=== PATIENT | female | born 1960 | race Caucasian/White ===

== ENCOUNTER → 2025-06-17 | Outpatient (CLI) | payer MEDICARE, OTHER ==
[2025-06-17 15:12] LABS: ALT 40 U/L (8-44); AST 25 U/L (13-35); Albumin 4.6 g/dL (3.8-4.9); Albumin/Globulin Ratio 1.64 Ratio (1.60-3.17); Alkaline Phosphatase 101 U/L (41-126); Anion Gap 11.20 mmol/L (4.00-12.00); BUN/Creat Ratio 33.40 Ratio (12.00-20.00); Blood Urea Nitrogen 16.7 mg/dL (9.0-27.0); Calcium 9.8 mg/dL (8.7-10.3); Carbon Dioxide 25.8 mmol/L (21.6-31.8); Chloride 102 mmol/L (96-109); Globulin 2.8 g/dL (1.6-3.3); Glucose 162 mg/dL (70-110); Potassium 4.0 mmol/L (3.5-5.5); Sodium 139 mmol/L (135-145); Total Protein 7.4 g/dL (6.2-8.2)
[2025-06-17 15:18] LABS: HCT 42.0 % (37.2-46.3); HGB 13.9 g/dL (12.0-15.0); MCH 29.6 pg (27.0-32.0); MCHC 33.1 g/dL (32.0-37.0); MCV 89.6 FL (80.0-97.0); NRBC Per 100 WBC 0 X 10*3/uL (0.00-0.01); Platelet Count 254 X 10*3/uL (140-440); RBC 4.69 X 10*6/uL (4.10-5.20); RDW 12.2 % (11.5-14.5); WBC 8.88 X 10*3/uL (4.50-10.00)
[2025-06-17 15:19] LABS: INR 0.93 sec (0.93-1.11); Partial Thromboplastin Time 26.2 sec (23.5-31.0); Prothrombin Time 10.5 sec (9.9-11.9)
== END | disposition home or self-care (01) ==
LOC: LABWHC1 10:41
PROVIDERS: ATTEND Orthopaedic Surgery
DX: Z01.812 Encounter for preprocedural laboratory examination (principal); Z22.322 Carrier or suspected carrier of Methicillin resistant Staphylococcus aureus
CPT/HCPCS: 36415; 80053; 85027; 85610; 85730; 87070; 93005

== ENCOUNTER 2025-06-28 07:15 | Day surgery (SDC) | payer MEDICARE, OTHER ==
[~2025-06-28 07:15] MED LIST: HYDROmorphone 0.5 MG/0.5 ML SYRINGE IVP PRN; TRANEXAMIC 1,000 MG/100ML-NACL 1,000 MG in SALINE 1 100ML.BAG IVPB PRN
[2025-06-28] MEDS: IV FLUID CONTINUATION 1,000 ML IV ONE (07:32)
[2025-06-28 08:17] LABS: Glucose,Whole Blood 103 mg/dL (70-110)
[2025-06-28] MEDS: LACTATED RINGERS 1,000 ML IV SCH (08:19)
[2025-06-28] MEDS: MELOXICAM 7.5 MG TAB PO PRN (08:22)
[2025-06-28] MEDS: GABAPENTIN 300 MG CAP PO PRN (08:23)
[2025-06-28] MEDS: DEXAMETHASONE SOD PHOSPHATE 4 MG/ML 1 ML VIAL IV ONE (08:24)
[2025-06-28] MEDS: ACETAMINOPHEN TAB 500 MG TAB PO PRN (08:24)
[2025-06-28] MEDS: ONDANSETRON 4 MG/2 ML VIAL IVP ONE (08:25)
[2025-06-28] MEDS: MIDAZOLAM 2 MG/2 ML VIAL IV ONE (08:39)
[2025-06-28] MEDS ORDERED: HYDROmorphone 0.5 MG/0.5 ML SYRINGE IVP PRN ×2 (09:07)
[2025-06-28] MEDS ORDERED: MAGNESIUM HYDROXIDE 2,400 MG/30 ML CUP PO PRN (09:07)
[2025-06-28] MEDS ORDERED: ONDANSETRON 4 MG/2 ML VIAL IVP PRN (09:07)
[2025-06-28] MEDS ORDERED: NALOXONE 0.4 MG/ML 1 ML VIAL IV PRN (09:07)
[2025-06-28] MEDS ORDERED: NA PHOS,M-B/NA PHOS,DI-BA 133 ML ENEMA RECTAL PRN (09:07)
[2025-06-28] MEDS ORDERED: HYDROcodone/APAP 7.5-325MG 1 EACH TAB PO PRN ×2 (09:11)
[2025-06-28] MEDS: ceFAZolin 1,000 MG in SODIUM CHLORIDE 0.9% 1,000 ML IRRIGATION ONE (09:42)
[2025-06-28] MEDS: LACTATED RINGERS 1,000 ML IV ONE (10:33)
--- NOTE | 2025-06-28 10:36 | P.OP ---
Date of Procedure: 06/28/25 Preoperative Diagnosis: Severe osteoarthritis of the right knee with a valgus deformity Postoperative Diagnosis: Severe osteoarthritis of the right knee with a valgus deformity Procedure(s) Performed: Right total knee arthroplasty Implants: Bar [employer] Nephew Journey II CR Oxinium Bi-cruciate stabilizing femoral component size 6, right [employer]hew Journey nonporous tibial baseplate size 4, right [employer] Nephew Journey II, constrained articular insert, size 9 mm, Size 3-4, right Bar [employer] Nephew Journey Nga II resurfacing patellar component, oval, 32 mm All components were cemented using Palacos R bone cement The articulation is Oxinium on polyethylene Anesthesia: spinal Surgeon: Bryan Glover Esthetician Spa #1: Bebe Rubi Estimated Blood Loss (ml): 40 Pathology: none sent Condition: stable Disposition: PACU Indications for Procedure: The patient's knee is end-stage, and conservative management has failed. The operation of knee replacement has been discussed at length in the office, as well as potential risks and complications. These are inclusive of, but not limited to: Infection, bleeding, scarring, discomfort, stiffness, blood vessel and nerve damage, need for further surgery, failure to relieve symptoms, persistence, recurrence, or worsening of problems, loosening, dislocation, wear, blood clot, pulmonary embolism, , gait dysfunction, stiffness, and other risks as discussed in the office. Patient elects to proceed and the consent form has been signed. Operative Findings: The operative findings are consistent with severe osteoarthritis of the right knee with a valgus deformity Description of Procedure: The patient was seen in the preoperative area, the consent was reviewed and the operative site was marked with a skin marker. The patient verified the procedure and the operative site. An adductor canal pain catheter and an iPACK block were placed by anesthesia in the preoperative area. The patient was then brought to the operating room and positioned on the operating room table in the supine position. Preoperative antibiotics and a gram of tranexamic acid were given intravenously. A spinal anesthetic was administered by the anesthesia department. Care was taken to make sure that all pressure points were adequately padded. A tourniquet was placed on the upper thigh and the lower extremity was prepped with ChloraPrep and draped in usual sterile fashion. A universal time-out was then performed which confirmed the patient's name, surgical site, ALLERGIES, and consent. The lower extremity was then exsanguinated and tourniquet was inflated to 250 mmHg. A standard anterior midline approach to the knee was performed. The skin and subcutaneous tissue were sharply dissected down to the patellar tendon. A medial parapatellar arthrotomy was then performed. The knee was then extended, the patellar was everted, and the knee was flexed. The infra-patellar fat pad was removed in order to enhance exposure. The anterior horns of both menisci were excised, and a release was performed to the posterior medial aspect of the knee. On gross visual inspection, there was complete loss of articular cartilage in the medial and patellofemoral joint spaces. There was also significant cartilage damage in the lateral compartment. There were multiple periarticular osteophytes globally about the knee which were then removed with a Ronguer. The femoral canal was then opened with the 9.5 mm intramedullary drill. The 8 mm intramedullary ligia was then inserted into the femoral canal with the distal femoral cutting guide set for 5 of valgus. The distal femoral cutting block was then pinned in place. The intramedullary ligia was then removed, and the distal femur was then cut. The cutting block was then removed and the cut was checked for symmetry. The resected bone was then measured to confirm the appropriate distal femoral resection. Next, the sizing guide was then placed and set for 3 external rotation based off of the epicondylar axis and Omaha's line. Pins were then placed and the drill holes, and the femur was sized with the sizing stylus. The pins were then removed, and the sizing guide was then removed. The spikes of the appropriate size femoral block was then placed into the predrilled holes, and malleted into place. Two 45 mm pins were then placed into the fixation holes on the cutting block. An pérez wing was then used to ensure there would be no notching with the anterior cut. The anterior condyles were cut without notching. The anterior chord cut was then performed, followed by the posterior cut, posterior chamfer cut, and the anterior chamfer cut. The collateral ligaments were protected during the entire process. The cutting block was then removed. Any remaining bone and osteophytes were removed from the femur with a Ronguer. Attention was then directed to the tibia. The remaining ACL was removed with a Ronguer, and the tibia was then gently subluxed forward with a large bent knee retractor. Any remaining menisci were excised. The posterior lateral corner was cauterized in order to coagulate the lateral geniculate artery. The extra medullary tibial cutting guide was then placed, set for the appropriate rotation, slope, and depth of resection. The proximal tibia cutting guide was then pinned in place. Proximal tibia was then cut and sized. A curved osteotome was then used to remove any posterior osteophytes from the distal femur. The femoral trial was placed. The notch reaming guide was placed and the notch reamer was then used to remove the intracondylar femoral bone. The box notch trial was then placed. The tibial trial was placed with the appropriate-sized insert. The knee was able to fully extend and flex to 130 and was stable throughout all range of motion. The knee was then extended and the patella was everted. Patella was then measured, and then using an osteotomy guide, the patella was cut at the appropriate level. The patellar component was sized. The patellar drill guide was placed and the patella was drilled. The patella trial was then placed. The knee was then taken through range of motion with the patella trial and the patella tracked normally using the no thumbs technique. The patella trial was then removed. The knee was then flexed and lug holes were drilled through the femoral trial and the femoral trial was then removed. The tibial was then re-exposed, and the tibial broach guide was then pinned in place after it was set for the appropriate rotation to allow for the most coverage without overhang. The tibia was then reamed and broached. The femoral canal was plugged with autologous bone. The cut surfaces of bone were then irrigated with pulsatile lavage. The knee was also irrigated with Irrisept solution. The components were then opened, the cement was mixed. Cement was placed on the backside of the femoral, tibial, and patellar components. Cement was then applied to the tibial surface and pressurized into the surface using finger pressurization technique. The tibial component was then applied and excess cement was removed after it was impacted securely noted to be flush with the cut surface. In similar fashion, the cement was applied to the cut femoral surface, pressurized and using finger pressurization the component was impacted in place. Excess cement was removed. The polyethylene spacer was then implanted and locked into position. Patellar component was then applied in a similar technique and the patellar clamp was used to hold patella in place while the cement hardened. The knee was held in full extension while the cement hardened. Once the cement had fully hardened, the knee was reinspected. Any other cement extrusion was removed the final range of motion testing showed range of motion from 0-130 with excellent stability, both medial and laterally and appropriate alignment of the leg. Patella tracked normally. After the cemented hardened, the tourniquet was released and hemostasis was obtained. A second gram of transexamic acid was given intravenously. The knee was again irrigated. The knee was again taken through range of motion and found to be stable throughout all range of motion of 0-130, and the patella tracked normally. The fascia was then closed with 0 Vicryl followed by #2 strata fix suture. The subcutaneous tissue was closed with 3-0 Vicryl and 3-0 strata fix. Exofin glue was used for the skin and placed with the knee in flexion. After the glue had dried, and Optafoam silver impregnated dressing was applied. A lightly compressive dressing was applied using web roll and Anthony wrap. Patient was then transferred to the stretcher and taken to recovery room in stable condition. Sponge and needle counts were correct. The financial services assistant CECE Guerin was required due the complexity surgery and the need for a skilled registered nurse surgical services. She assisted in positioning, draping, retraction, and closure of the wound.
[2025-06-28] MEDS ORDERED: HYDROcodone/APAP 5-325MG 1 EACH TAB PO PRN (11:10)
[2025-06-28] MEDS: ROPIVACAINE 1,100 MG, SODIUM CHLORIDE 0.9% 500 ML 330 ML, EMPTY PAIN BALL 1 EACH MISCELLANE PRN (11:25)
--- NOTE | 2025-06-28 11:30 | XR ---
EXAMINATION TYPE: XR knee limited RT DATE OF EXAM: 06/28/2025 11:25 AM INDICATION: Patient age:Female; 65 years old; Reason for study: Evaluation for Postop abnormality and alignment; PHH. pain COMPARISON: None. TECHNIQUE: The Right knee(s) was examined in frontal and lateral projections. FINDINGS: Status post total knee arthroplasty changes with hardware in appropriate alignment and in tact. No evidence of fracture. Subcutaneous lucencies and lucencies within the joint consistent with surgical changes. IMPRESSION: Status post total knee arthroplasty changes with hardware intact and appropriate alignment. No fractu res identified. [facility], , 06/28/2025 11:28 AM
[2025-06-28] MEDS: SODIUM CHLORIDE 0.9% 1,000 ML IV SCH (15:46)
--- NOTE | 2025-06-28 16:39 | P.CONS ---
History of Present Illness - Reason for Consult Consult date: 06/28/25 rehab recommendations - Chief Complaint debility - History of Present Illness Ms Dayne Melendez is a 65 y/o right handed single female who most recently was at [facility]. It is unclear from the patient whether she has been home since her stroke in December 2024. It appears she may have been in a hospital in [place] for the stroke and might have done IPR. She then transferred to [facility]. Per patient she has not recently been ambulatory after the stroke. It is unsure if this is related to the stroke or if her severe right knee OA was a contributing factor. She reports the staff was helping her with ADLs. Per patient she has a supportive brother and sister, no children of her own. Patient presented to [facility] on 06/28/25 for an elective right total knee arthroplasty secondary to severe right knee OA with Valgus deformity. Patient failed outpatient conservative treatment. She sustained a CVA in December 2024 and has a complicated recovery due to on going right hemiparesis and aphasia. PM&R consulted for rehab recommendations. Patient is pending therapy evaluations. 06/28: Patient states she still feels a little out of it from her surgery earlier today. She denies CP,SOB, and abdominal pain. She had a BM yesterday. She reports pain in the right leg and feels numb right now post surgery. She denies issues with swallowing. Review of Systems reviewed, as above in subjective/ HPI Past Medical History Past Medical History: Cancer, CVA/TIA, Hyperlipidemia, Hypertension, Osteoarthritis (OA) Additional Past Medical History / Comment(s): past hx. breast cancer, stroke in 2024-has right sided weakness, needs assistance, mild aphasia, sometimes hard to get the right words out per staff, right facial muscle weakness History of Any Multi-Drug Resistant Organisms: None Reported Past Surgical History: Breast Surgery Additional Past Surgical History / Comment(s): right mastectomy Past Anesthesia/Blood Transfusion Reactions: No Reported Reaction Past Psychological History: Anxiety Smoking Status: Never smoker Past Alcohol Use History: None Reported Past Drug Use History: None Reported Medications and Allergies Home Medications Medication Instructions Recorded Confirmed Type Acetaminophen [Tylenol Extra 500 mg PO DIRECTED PRN 06/25/25 06/28/25 History Strength] Aspirin 81 mg PO DAILY 06/25/25 06/28/25 History Atorvastatin [Lipitor] 40 mg PO 1700 06/25/25 06/28/25 History Cholecalciferol [Vitamin D3 (25 1,000 unit PO DAILY 06/25/25 06/28/25 History Mcg = 1000 Iu)] Magnesium Hydroxide [Milk of 30 ml PO DIRECTED PRN 06/25/25 06/28/25 History Magnesia] Menthol [Biofreeze] 1 applic TOPICAL Q6H PRN 06/25/25 06/28/25 History Multivitamins, Thera [Multivitamin 1 tab PO DAILY 06/25/25 06/28/25 History (formulary)] Saliva Stimulant Comb. No.3 1 lozenge PO DIRECTED PRN 06/25/25 06/28/25 History [Biotene Moisturizing Mouth] Shark Cartilage Powder 1 cap PO DAILY 06/25/25 06/28/25 History amLODIPine [Norvasc] 5 mg PO DAILY 06/25/25 06/28/25 History Aspirin 325 mg PO BID #60 tab 06/28/25 Rx HYDROcodone/APAP 5-325MG [[place] 1 - 2 tab PO Q6HR PRN #32 tab 06/28/25 Rx 5-325] Sennosides [Senokot] 2 tab PO DAILY PRN #60 tablet 06/28/25 Rx Allergies Allergy/AdvReac Type Severity Reaction Status Date / Time No Known Allergies Allergy Verified 06/28/25 07:39 Physical Exam Vitals: Vital Signs Temp Pulse Resp BP Pulse Ox 06/28/25 12:12 97.7 F 94 18 135/75 95 06/28/25 11:50 81 16 131/76 97 06/28/25 11:35 84 16 125/76 97 06/28/25 11:20 79 16 125/71 100 06/28/25 11:05 96.8 F L 80 12 123/75 99 06/28/25 09:00 87 14 152/87 99 06/28/25 08:45 85 16 147/93 98 06/28/25 07:49 97.9 F 92 16 147/85 99 Intake and Output 06/27/25 06/28/25 06/28/25 22:59 06:59 14:59 Intake Total 1251 Output Total 40 Balance 1211 Intake: IV 1251 Output: Estimated Blood Loss 40 Other: Weight 76.1 kg General: WDWN female, laying in bed with HOB elevated, alert, NAD HEENT: head normocephalic, atraumatic; moist mucous membranes, external ears intact with hearing intact to conversational speech Neck: supple CV: RRR, dorsalis pedis pulses intact Lungs: CTA B/L Abdomen: soft, NT, ND MSK: full ROM left UE and LE, Right hemiparesis. Right shoulder- 1 fingers breadth subluxation MMT: Right arm small synergy pattern, RLE 0/5, LUE and L DF 5/5 Neuro: A & O 2-3, processing is slow, speech is clear, able to identify 3 objects, difficulty repeating "no ifs, ands, or buts". Follows 2-3 step commands CN 2-12 grossly intact except right facial droop Sensation intact to light touch bilateral UE and LEs, right mid thigh- rosa wrap difficult to assess accurately Psych: mood calm, pleasant Extremities: calves supple, non tender, + RLE edema, left pedal edema Skin: intact where exposed, right surgical incisions not assessed Assessment and Plan Assessment: # Impaired gait and ADLs secondary to severe right knee OA s/p TKA complicated by recent CVA with right hemiparesis and aphasia -WBAT #Pain secondary to above #History of recent CVA with residual right hemiparesis and aphasia (Dec 2024) #Bowel/Bladder -monitor for retention and constipation #DVT Proph -ASA 325 mg BID x 30 days -recommend SCDs given patient's right hemiplegia # Pain Management -[place] 5/325 mg 1-2 tabs every 6 hrs prn pain, Dilaudid IV prn #Comorbidities: HTN, HLD, history of cancer #Your medical dx and management Dispo: Patient is pending therapy evaluations, recommend PT/OT evaluations. Patient's case is complicated given her recent CVA. We will look into her insurance benefits for [facility]. Patient would like to come to [facility] and is motivated and willing to participate with therapy. Per Case Management, patient's family would also like [facility]. We will continue to follow her case. DW Case Management at [facility] and Liaison at [facility]. Patient seen and examined in collaboration with Dr. John Terrazas. Thank you for consulting our services.
[2025-06-28] MEDS: SENNOSIDES-DOCUSATE SODIUM 1 EACH TAB PO SCH (21:38)
[2025-06-28] MEDS: HYDROcodone/APAP 5-325MG 1 EACH TAB PO PRN (21:39)
[2025-06-28] MEDS: ASPIRIN 325 MG TAB PO SCH (21:39)
[2025-06-29] MEDS: HYDROmorphone 0.5 MG/0.5 ML SYRINGE IVP PRN (00:46)
[2025-06-29 08:33] LABS: Basophils # (A) 0.02 X 10*3/uL (0.00-0.10); Basophils % (A) 0.1 %; Eosinophils # (A) 0 X 10*3/uL (0.04-0.35); Eosinophils % (A) 0 %; HCT 33.8 % (37.2-46.3); HGB 11.3 g/dL (12.0-15.0); Immature Grans, Automated 0.50 %; Lymphocytes # (A) 1.25 X 10*3/uL (0.90-5.00); Lymphocytes % (A) 9.0 %; MCH 30.5 pg (27.0-32.0); MCHC 33.4 g/dL (32.0-37.0); MCV 91.4 FL (80.0-97.0); Monocytes # (A) 0.96 X 10*3/uL (0.20-1.00); Monocytes % (A) 6.9 %; NRBC Per 100 WBC 0 X 10*3/uL (0.00-0.01); Neutrophils # (A) 11.63 X 10*3/uL (1.80-7.70); Neutrophils % (A) 83.5 %; Platelet Count 230 X 10*3/uL (140-440); RBC 3.70 X 10*6/uL (4.10-5.20); RDW 12.2 % (11.5-14.5); WBC 13.93 X 10*3/uL (4.50-10.00)
--- NOTE | 2025-06-29 11:45 | P.PN ---
Progress Note - Text 06/29/25 634am 65-year-old female status post total knee replacement. Patient has an On-Q pump for postop pain control with a solution running at 80 cc an hour with a VAS of 5 dressing clean dry and intact plan to continue On-Q pump infusion
--- NOTE | 2025-06-29 11:53 | P.ANPRN ---
Procedure Note - Anesthesia - Nerve Block Performed Right Adductor Canal Infusion Time Out Performed: Yes Date of Procedure: 06/28/25 Procedure Start Time: 08:39 Procedure Stop Time: 08:48 Location of Patient: PreOp Indication: Acute Post-Operative Pain, Requested by Surgeon Sedation Type: Sedate with meaningful contact maintained Preparation: Sterile Prep, Sterile Dressing Position: Supine Catheter: Indwelling Needle Types: On-Q Needle Gauge: 21 Ultrasound used to visualize needle placement: Yes Ultrasound used to observe medication spread: Yes Blood Aspirated: No Pain Paresthesia on Injection Noted: No Resistance on Injection: Normal Image Stored and Saved: Yes Events: Uneventful and Well Tolerated (ropi .5% 20 cc plus dexamethasone 4 mg)
--- NOTE | 2025-06-29 11:54 | P.ANPRN ---
Procedure Note - Anesthesia - Nerve Block Performed Right iPack Single Time Out Performed: Yes Date of Procedure: 06/28/25 Procedure Start Time: 08:50 Procedure Stop Time: 08:51 Location of Patient: PreOp Indication: Acute Post-Operative Pain, Requested by Surgeon Sedation Type: Sedate with meaningful contact maintained Preparation: Sterile Prep, Sterile Dressing Position: Left Lateral Needle Types: Pajunk Needle Gauge: 21 Ultrasound used to visualize needle placement: Yes Ultrasound used to observe medication spread: Yes Blood Aspirated: No Pain Paresthesia on Injection Noted: No Resistance on Injection: Normal Image Stored and Saved: Yes Events: Uneventful and Well Tolerated (Ropivacaine 0.5% 20 cc was dexamethasone 4 mg)
--- NOTE | 2025-06-29 12:54 | P.PN ---
Subjective Progress Note Date: 06/29/25 This is a 65-year-old female who is status post right total knee arthroplasty. This is postoperative day #1 and patient is seen and evaluated at bedside today. Patient states that her pain is well-controlled and she was able to work with physical therapy today. Patient has a history of stroke with right-sided weakness of both upper and lower extremities. Objective - Vital Signs Vital signs: Vital Signs Temp 97.8 F 06/29/25 06:51 Pulse 82 06/29/25 06:51 Resp 16 06/29/25 06:51 BP 147/73 06/29/25 06:51 Pulse Ox 96 06/29/25 06:51 FiO2 Intake & Output 06/28/25 06/29/25 06/29/25 18:59 06:59 18:59 Intake Total 1611 Output Total 40 Balance 1571 Weight 76.1 kg Intake: IV 1251 Oral 360 Output: Estimated Blood Loss 40 Other: Voiding Method Bedside Commode # Voids 2 3 - Exam Vital signs are stable. Patient is in no acute distress and is alert and oriented 3. Calf is soft and nontender to palpation. Dressing is clean, dry, and intact. Patient has full foot and ankle motion without pain or difficulty. Sensation intact. Neurovascular status and circulatory status are intact. - Labs CBC & Chem 7: 06/29/25 02:40 Labs: Abnormal Lab Results - Last 24 Hours (Table) 06/29/25 Range/Units 02:40 WBC 13.93 H (4.50-10.00) X 10*3/uL RBC 3.70 L (4.10-5.20) X 10*6/uL Hgb 11.3 L (12.0-15.0) g/dL Hct 33.8 L (37.2-46.3) % Immature Gran # 0.07 H (0.00-0.04) X 10*3/uL Neutrophils # 11.63 H (1.80-7.70) X 10*3/uL Eosinophils # 0 L (0.04-0.35) X 10*3/uL Assessment and Plan (1) Osteoarthritis of right knee Current Visit: Yes Status: Acute Code(s): M17.11 - UNILATERAL PRIMARY OSTEOARTHRITIS, RIGHT KNEE SNOMED Code(s): 172543005118740 (2) Status post total right knee replacement Current Visit: Yes Status: Acute Code(s): Z96.651 - PRESENCE OF RIGHT ARTIFICIAL KNEE JOINT SNOMED Code(s): 7798717395301 Plan: #1 Continue with routine postoperative care and pain control, leave dressing in place for 7 days. #2 Anticoagulation with aspirin. #3 Physical therapy today. #4 Appreciate input from internal medicine. #5 Anticipate discharge to [facility] in the next 24-48 hours.
--- NOTE | 2025-06-29 14:48 | P.CONS ---
History of Present Illness - Reason for Consult Consult date: 06/29/25 Medical management - History of Present Illness History of present illness; patient 65-year-old lady with past medical history significant for CVA presented to the hospital for elective right total knee arthroplasty. Patient has been following up outpatient with orthopedic for right knee pain, was diagnosed as having severe osteoarthritis. Patient had tried therapy and conservative measures but did not improve, decision was made to proceed with right total knee arthroplasty. Postoperatively internal medicine team were consulted for medical management REVIEW OF SYSTEMS: CONSTITUTIONAL: No fever, no malaise, no fatigue. HEENT: No recent visual problems or hearing problems. Denied any sore throat. CARDIOVASCULAR: No chest pain, orthopnea, PND, no palpitations, no syncope. PULMONARY: No shortness of breath, no cough, no hemoptysis. GASTROINTESTINAL: No diarrhea, no nausea, no vomiting, no abdominal pain. NEUROLOGICAL: No headaches, no weakness, no numbness. HEMATOLOGICAL: Denies any bleeding or petechiae. GENITOURINARY: Denies any burning micturition, frequency, or urgency. MUSCULOSKELETAL/RHEUMATOLOGICAL: Right knee pain ENDOCRINE: Denies any polyuria or polydipsia. The rest of the 14-point review of systems is negative. PHYSICAL EXAMINATION: GENERAL: The patient is alert and oriented x3, not in any acute distress. Well developed, well nourished. HEENT: Pupils are round and equally reacting to light. EOMI. No scleral icterus. No conjunctival pallor. Normocephalic, atraumatic. No pharyngeal erythema. No thyromegaly. CARDIOVASCULAR: S1 and S2 present. No murmurs, rubs, or gallops. PULMONARY: Chest is clear to auscultation, no wheezing or crackles. ABDOMEN: Soft, nontender, nondistended, normoactive bowel sounds. No palpable organomegaly. MUSCULOSKELETAL: Right knee surgical incision seen EXTREMITIES: No cyanosis, clubbing, or pedal edema. NEUROLOGICAL: Strength 4 x 5 in right upper and lower extremity, 5/5 in left side SKIN: No rashes. Assessment and plan Right knee osteoarthritis status post right total knee arthroplasty History of prior CVA Monitor vital signs Monitor CBC Continue pain management per orthopedics Continue DVT prophylaxis per orthopedics Aggressive bowel regimen to prevent opioid-induced constipation Resume home meds PT and OT consulted Labs and medication were reviewed.. Continue same treatment. Continue with symptomatic treatment. Resume home medication. Monitor labs and vitals. DVT and GI prophylaxis. Further recommendations as per clinical course of the patient Dictation was produced using [employer] dictation software. please excuse any grammatical, word or spelling errors. Past Medical History Past Medical History: Cancer, CVA/TIA, Hyperlipidemia, Hypertension, Osteoarthritis (OA) Additional Past Medical History / Comment(s): past hx. breast cancer, stroke in 2024-has right sided weakness, needs assistance, mild aphasia, sometimes hard to get the right words out per staff, right facial muscle weakness History of Any Multi-Drug Resistant Organisms: None Reported Past Surgical History: Breast Surgery Additional Past Surgical History / Comment(s): right mastectomy Past Anesthesia/Blood Transfusion Reactions: No Reported Reaction Smoking Status: Never smoker Medications and Allergies Home Medications Medication Instructions Recorded Confirmed Type Acetaminophen [Tylenol Extra 500 mg PO DIRECTED PRN 06/25/25 06/28/25 History Strength] Aspirin 81 mg PO DAILY 06/25/25 06/28/25 History Atorvastatin [Lipitor] 40 mg PO 1700 06/25/25 06/28/25 History Cholecalciferol [Vitamin D3 (25 1,000 unit PO DAILY 06/25/25 06/28/25 History Mcg = 1000 Iu)] Magnesium Hydroxide [Milk of 30 ml PO DIRECTED PRN 06/25/25 06/28/25 History Magnesia] Menthol [Biofreeze] 1 applic TOPICAL Q6H PRN 06/25/25 06/28/25 History Multivitamins, Thera [Multivitamin 1 tab PO DAILY 06/25/25 06/28/25 History (formulary)] Saliva Stimulant Comb. No.3 1 lozenge PO DIRECTED PRN 06/25/25 06/28/25 History [Biotene Moisturizing Mouth] Shark Cartilage Powder 1 cap PO DAILY 06/25/25 06/28/25 History amLODIPine [Norvasc] 5 mg PO DAILY 06/25/25 06/28/25 History Aspirin 325 mg PO BID #60 tab 06/28/25 Rx HYDROcodone/APAP 5-325MG [[place] 1 - 2 tab PO Q6HR PRN #32 tab 06/28/25 Rx 5-325] Sennosides [Senokot] 2 tab PO DAILY PRN #60 tablet 06/28/25 Rx Allergies Allergy/AdvReac Type Severity Reaction Status Date / Time No Known Allergies Allergy Verified 06/28/25 07:39 Physical Exam Vitals: Vital Signs Temp Pulse Pulse Resp BP Pulse Ox 06/29/25 13:33 97.8 F 87 16 104/61 97 06/29/25 06:51 97.8 F 82 16 147/73 96 06/29/25 02:27 97.5 F L 77 18 106/65 96 06/28/25 21:26 95 06/28/25 19:44 97.4 F L 111 H 19 120/69 91 L Intake and Output 06/28/25 06/29/25 06/29/25 22:59 06:59 14:59 Intake Total 120 Balance 120 Intake: Oral 120 Other: Voiding Method Bedside Commode # Voids 2 3 Weight 76.1 kg Results CBC & Chem 7: 06/29/25 02:40 Labs: Abnormal Lab Results - Last 24 Hours (Table) 06/29/25 Range/Units 02:40 WBC 13.93 H (4.50-10.00) X 10*3/uL RBC 3.70 L (4.10-5.20) X 10*6/uL Hgb 11.3 L (12.0-15.0) g/dL Hct 33.8 L (37.2-46.3) % Immature Gran # 0.07 H (0.00-0.04) X 10*3/uL Neutrophils # 11.63 H (1.80-7.70) X 10*3/uL Eosinophils # 0 L (0.04-0.35) X 10*3/uL
[2025-06-29] MEDS: ATORVASTATIN 40 MG TAB PO SCH (16:29)
[2025-06-30] MEDS: CHOLECALCIFEROL 25 MCG (1000 IU) TABLET PO SCH (08:33)
[2025-06-30] MEDS: amLODIPine 5 MG TAB PO SCH (08:33)
--- NOTE | 2025-06-30 09:20 | P.PN ---
Subjective Progress Note Date: 06/30/25 This is a 65-year-old female who is status post right total knee arthroplasty. This is postoperative day #2 and patient is seen and evaluated at bedside today. Patient states that her pain is well-controlled and she denies any new complaints today. Patient has a history of stroke with right-sided weakness of both upper and lower extremities. Objective - Vital Signs Vital signs: Vital Signs Temp 98.4 F 06/30/25 07:22 Pulse 108 H 06/30/25 07:22 Resp 16 06/30/25 07:22 BP 195/82 06/30/25 07:22 Pulse Ox 95 06/30/25 07:22 FiO2 Intake & Output 06/29/25 06/30/25 06/30/25 18:59 06:59 18:59 Other: Voiding Method Bedside Commode Bedside Commode # Voids 5 1 - Exam Vital signs are stable. Patient is in no acute distress and is alert and oriented 3. Calf is soft and nontender to palpation. Dressing is clean, dry, and intact. Chronic weakness of the right lower extremity secondary to stroke. Sensation intact. Neurovascular status and circulatory status are intact. - Labs CBC & Chem 7: 06/29/25 02:40 Assessment and Plan (1) Osteoarthritis of right knee Current Visit: Yes Status: Acute Code(s): M17.11 - UNILATERAL PRIMARY OSTEOARTHRITIS, RIGHT KNEE SNOMED Code(s): 488303373105550 (2) Status post total right knee replacement Current Visit: Yes Status: Acute Code(s): Z96.651 - PRESENCE OF RIGHT ARTIFICIAL KNEE JOINT SNOMED Code(s): 6346421353103 Plan: #1 Continue with routine postoperative care and pain control, leave dressing in place for 7 days. #2 Anticoagulation with aspirin. #3 Physical therapy today. #4 Appreciate input from internal medicine. #5 Anticipate discharge to ECF in the next 24-48 hours.
--- NOTE | 2025-06-30 15:03 | P.PN ---
Subjective Progress Note Date: 06/30/25 65-year-old lady with past medical history significant for CVA presented to the hospital for elective right total knee arthroplasty. Patient has been following up outpatient with orthopedic for right knee pain, was diagnosed as having severe osteoarthritis. Patient had tried therapy and conservative measures but did not improve, decision was made to proceed with right total knee arthroplasty. Postoperatively internal medicine team were consulted for medical management 06/30. Patient seen and examined. States right knee pain has improved. No acute issues overnight REVIEW OF SYSTEMS: CONSTITUTIONAL: No fever, no malaise,. CARDIOVASCULAR: No chest pain, no palpitations, no syncope. PULMONARY: No shortness of breath, no cough, GASTROINTESTINAL: No diarrhea, no nausea, no vomiting, no abdominal pain. NEUROLOGICAL: No headaches, no weakness, PHYSICAL EXAMINATION: GENERAL: The patient is alert and oriented x3, not in any acute distress. Well developed, well nourished. HEENT: Pupils are round and equally reacting to light. EOMI. No scleral icterus. No conjunctival pallor. Normocephalic, atraumatic. No pharyngeal erythema. No thyromegaly. CARDIOVASCULAR: S1 and S2 present. No murmurs, rubs, or gallops. PULMONARY: Chest is clear to auscultation, no wheezing or crackles. ABDOMEN: Soft, nontender, nondistended, normoactive bowel sounds. No palpable organomegaly. MUSCULOSKELETAL: Right knee surgical incision seen EXTREMITIES: No cyanosis, clubbing, or pedal edema. NEUROLOGICAL: Gross neurological examination did not reveal any focal deficits. SKIN: No rashes. Assessment and plan Right knee osteoarthritis status post right total knee arthroplasty History of prior CVA Monitor vital signs Monitor CBC Continue pain management per orthopedics Continue DVT prophylaxis per orthopedics Aggressive bowel regimen to prevent opioid-induced constipation Continue Norvasc, Lipitor PT and OT recommend rehab, waiting on insurance authorization Labs and medication were reviewed.. Continue same treatment. Continue with symptomatic treatment. Resume home medication. Monitor labs and vitals. DVT and GI prophylaxis. Further recommendations as per clinical course of the castillo ent Dictation was produced using [employer] dictation software. please excuse any grammatical, word or spelling errors. Objective - Vital Signs Vital signs: Vital Signs Temp 98.4 F 06/30/25 13:56 Pulse 115 H 06/30/25 13:56 Resp 17 06/30/25 13:56 BP 181/95 06/30/25 13:56 Pulse Ox 97 06/30/25 13:56 FiO2 Intake & Output 06/29/25 06/30/25 06/30/25 18:59 06:59 18:59 Other: Voiding Method Bedside Commode Bedside Commode Bedside Commode # Voids 5 1 - Labs CBC & Chem 7: 06/29/25 02:40
[2025-07-01 07:21] VITALS: RESP 16
[2025-07-01 08:12] LABS: HCT 28.3 % (37.2-46.3); HGB 9.6 g/dL (12.0-15.0); MCH 30.6 pg (27.0-32.0); MCHC 33.9 g/dL (32.0-37.0); MCV 90.1 FL (80.0-97.0); NRBC Per 100 WBC 0 X 10*3/uL (0.00-0.01); Platelet Count 217 X 10*3/uL (140-440); RBC 3.14 X 10*6/uL (4.10-5.20); RDW 12.5 % (11.5-14.5); WBC 15.61 X 10*3/uL (4.50-10.00)
[2025-07-01 08:18] LABS: ALT 19 U/L (8-44); AST 20 U/L (13-35); Albumin 3.7 g/dL (3.8-4.9); Albumin/Globulin Ratio 1.42 Ratio (1.60-3.17); Alkaline Phosphatase 75 U/L (41-126); Anion Gap 11.10 mmol/L (4.00-12.00); BUN/Creat Ratio 19.80 Ratio (12.00-20.00); Blood Urea Nitrogen 9.9 mg/dL (9.0-27.0); Calcium 8.9 mg/dL (8.7-10.3); Carbon Dioxide 24.9 mmol/L (21.6-31.8); Chloride 102 mmol/L (96-109); Globulin 2.6 g/dL (1.6-3.3); Glucose 142 mg/dL (70-110); Potassium 3.9 mmol/L (3.5-5.5); Sodium 138 mmol/L (135-145); Total Protein 6.3 g/dL (6.2-8.2)
[2025-07-01 09:50] LABS: Basophils # (A) 0.05 X 10*3/uL (0.00-0.10); Basophils % (A) 0.3 %; Eosinophils # (A) 0.01 X 10*3/uL (0.04-0.35); Eosinophils % (A) 0.1 %; Immature Grans, Automated 0.60 %; Lymphocytes # (A) 1.81 X 10*3/uL (0.90-5.00); Lymphocytes % (A) 11.6 %; Monocytes # (A) 2.04 X 10*3/uL (0.20-1.00); Monocytes % (A) 13.1 %; Neutrophils # (A) 11.61 X 10*3/uL (1.80-7.70); Neutrophils % (A) 74.3 %
--- NOTE | 2025-07-01 09:58 | P.PN ---
Subjective Progress Note Date: 07/01/25 This is a 65-year-old female who is status post right total knee arthroplasty. This is postoperative day #3 and patient is seen and evaluated at bedside today. Patient states that her pain is well-controlled and she denies any new complaints today. Patient has a history of stroke with right-sided weakness of both upper and lower extremities. Objective - Vital Signs Vital signs: Vital Signs Temp 97.7 F 07/01/25 07:21 Pulse 101 H 07/01/25 07:21 Resp 16 07/01/25 07:21 BP 153/84 07/01/25 07:21 Pulse Ox 95 07/01/25 07:21 FiO2 Intake & Output 06/30/25 07/01/25 07/01/25 18:59 06:59 18:59 Other: Voiding Method Bedside Commode Bedside Commode # Voids 3 4 - Exam Vital signs are stable. Patient is in no acute distress and is alert and oriented 3. Calf is soft and nontender to palpation. Dressing is clean, dry, and intact. Chronic weakness of the right lower extremity secondary to stroke. Sensation intact. Neurovascular status and circulatory status are intact. - Labs CBC & Chem 7: 07/01/25 05:01 07/01/25 05:01 Labs: Abnormal Lab Results - Last 24 Hours (Table) 07/01/25 07/01/25 Range/Units 05:01 05:01 WBC 15.61 H (4.50-10.00) X 10*3/uL RBC 3.14 L (4.10-5.20) X 10*6/uL Hgb 9.6 L (12.0-15.0) g/dL Hct 28.3 L (37.2-46.3) % Immature Gran # 0.09 H (0.00-0.04) X 10*3/uL Neutrophils # 11.61 H (1.80-7.70) X 10*3/uL Monocytes # 2.04 H (0.20-1.00) X 10*3/uL Eosinophils # 0.01 L (0.04-0.35) X 10*3/uL Creatinine 0.5 L (0.6-1.5) mg/dL Glucose 142 H (70-110) mg/dL Albumin 3.7 L (3.8-4.9) g/dL Albumin/Globulin Ratio 1.42 L (1.60-3.17) Ratio Assessment and Plan (1) Osteoarthritis of right knee Status: Acute Code(s): M17.11 - UNILATERAL PRIMARY OSTEOARTHRITIS, RIGHT KNEE SNOMED Code(s): 107158494413676 (2) Status post total right knee replacement Status: Acute Code(s): Z96.651 - PRESENCE OF RIGHT ARTIFICIAL KNEE JOINT SNOMED Code(s): 0908458328780 Plan: #1 Continue with routine postoperative care and pain control, leave dressing in place for 7 days. #2 Anticoagulation with aspirin. #3 Physical therapy today. #4 Appreciate input from internal medicine. #5 Anticipate discharge to ECF in the next 24-48 hours.
[2025-07-01 14:10] VITALS: BP 125/67; PULSE 107; TEMP 97.6
--- NOTE | 2025-07-01 14:36 | P.DS ---
Providers Expected date of discharge: 07/01/25 Attending physician: Bryan Glover Consults: 06/28/25 09:07 Consult Physician Routine Consulting Provider: Giovanna Jackson Consult Reason/Comments: medical management Do you want consulting provider notified?: Yes 06/28/25 11:16 Consult Physician Routine Consulting Provider: Tyler Cohen Consult Reason/Comments: Rehab placement Do you want consulting provider notified?: Yes Primary care physician: Zurdo Ziegler - Discharge Diagnosis(es) (1) Osteoarthritis of right knee Status: Acute (2) Status post total right knee replacement Status: Acute Hospital Course: This is a 65-year-old female with known history of degenerative arthritis of the right knee. The patient presented for evaluation as an outpatient. After discussion and consideration patient elects to proceed with total knee arthroplasty. The patient is seen preoperatively by Dr. Glover and medically cleared for surgery by their primary care physician. Patient is admitted to [facility] on 06/28/2025 for total knee arthroplasty. The procedure is performed without complication or sequelae. The patient is doing well postoperatively. Labs and vital signs are stable on day of discharge. On day of discharge patient's knee incision is healing well. There is minimal erythema. There is no drainage noted at this time. There is minimal soft tissue swelling to the knee. Patient has full foot and ankle motion without difficulty or pain. Calf is soft and nontender to palpation. Neurovascular status to the right lower extremity is intact. Patient is discharged to [facility] in good condition. Please see med rec for accurate list of home medications. Plan - Discharge Summary Discharge Rx Participant: No New Discharge Prescriptions: New Aspirin 325 mg PO BID #60 tab HYDROcodone/APAP 5-325MG [[place]helsea 5-325] 1 - 2 tab PO Q6HR PRN #32 tab PRN Reason: Pain Sennosides [Senokot] 2 tab PO DAILY PRN #60 tablet PRN Reason: Constipation No Action Atorvastatin [Lipitor] 40 mg PO 1700 Acetaminophen [Tylenol Extra Strength] 500 mg PO DIRECTED PRN PRN Reason: Pain amLODIPine [Norvasc] 5 mg PO DAILY Multivitamins, Thera [Multivitamin (formulary)] 1 tab PO DAILY Aspirin 81 mg PO DAILY Magnesium Hydroxide [Milk of Magnesia] 30 ml PO DIRECTED PRN PRN Reason: Constipation Cholecalciferol [Vitamin D3 (25 Mcg = 1000 Iu)] 1,000 unit PO DAILY Shark Cartilage Powder 1 cap PO DAILY Saliva Stimulant Comb. No.3 [Biotene Moisturizing Mouth] 1 lozenge PO DIRECTED PRN PRN Reason: Dry Mouth Menthol [Biofreeze] 1 applic TOPICAL Q6H PRN PRN Reason: Pain Discharge Medication List Acetaminophen [Tylenol Extra Strength] 500 mg PO DIRECTED PRN 06/25/25 [History] Aspirin 81 mg PO DAILY 06/25/25 [History] Atorvastatin [Lipitor] 40 mg PO 1700 06/25/25 [History] Cholecalciferol [Vitamin D3 (25 Mcg = 1000 Iu)] 1,000 unit PO DAILY 06/25/25 [History] Magnesium Hydroxide [Milk of Magnesia] 30 ml PO DIRECTED PRN 06/25/25 [History] Menthol [Biofreeze] 1 applic TOPICAL Q6H PRN 06/25/25 [History] Multivitamins, Thera [Multivitamin (formulary)] 1 tab PO DAILY 06/25/25 [History] Saliva Stimulant Comb. No.3 [Biotene Moisturizing Mouth] 1 lozenge PO DIRECTED PRN 06/25/25 [History] Shark Cartilage Powder 1 cap PO DAILY 06/25/25 [History] amLODIPine [Norvasc] 5 mg PO DAILY 06/25/25 [History] Aspirin 325 mg PO BID #60 tab 06/28/25 [Rx] HYDROcodone/APAP 5-325MG [[place]helsea 5-325] 1 - 2 tab PO Q6HR PRN #32 tab 06/28/25 [Rx] Sennosides [Senokot] 2 tab PO DAILY PRN #60 tablet 06/28/25 [Rx] Follow up Appointment(s)/Referral(s): [facility] [NON-STAFF] - As Needed Bryan Glover DO [Doctor of Osteopathic Medicine] - 07/12/25 1:00 pm Activity/Diet/Wound Care/Special Instructions: Weightbearing as tolerated with a walker. Leave dressing intact. Dressing may be removed by home care nurse or by patient in 7 days. Then change dressing twice daily until follow up. May shower with initial dressing intact and after removal. If dressing become saturated, please remove. Recommend use of compression stockings daily until follow up to help prevent swelling and blood clots. May remove at night before sleeping. Please take aspirin 325mg twice daily for 30 days to prevent blood clots. Please follow up with [facility] and call with any questions or concerns, . Discharge Disposition: TRANSFER TO SNF/ECF
--- NOTE | 2025-07-01 14:58 | P.PN ---
Subjective Progress Note Date: 07/01/25 65-year-old lady with past medical history significant for CVA presented to the hospital for elective right total knee arthroplasty. Patient has been following up outpatient with orthopedic for right knee pain, was diagnosed as having severe osteoarthritis. Patient had tried therapy and conservative measures but did not improve, decision was made to proceed with right total knee arthroplasty. Postoperatively internal medicine team were consulted for medical management 06/30. Patient seen and examined. States right knee pain has improved. No acute issues overnight 07/01. Patient seen and examined. She feels much better. Vital signs stable REVIEW OF SYSTEMS: CONSTITUTIONAL: No fever, no malaise,. CARDIOVASCULAR: No chest pain, no palpitations, no syncope. PULMONARY: No shortness of breath, no cough, GASTROINTESTINAL: No diarrhea, no nausea, no vomiting, no abdominal pain. NEUROLOGICAL: No headaches, no weakness, PHYSICAL EXAMINATION: GENERAL: The patient is alert and oriented x3, not in any acute distress. Well developed, well nourished. HEENT: Pupils are round and equally reacting to light. EOMI. No scleral icterus. No conjunctival pallor. Normocephalic, atraumatic. No pharyngeal erythema. No thyromegaly. CARDIOVASCULAR: S1 and S2 present. No murmurs, rubs, or gallops. PULMONARY: Chest is clear to auscultation, no wheezing or crackles. ABDOMEN: Soft, nontender, nondistended, normoactive bowel sounds. No palpable organomegaly. MUSCULOSKELETAL: Right knee surgical incision seen EXTREMITIES: No cyanosis, clubbing, or pedal edema. NEUROLOGICAL: Right-sided weakness SKIN: No rashes. Assessment and plan Right knee osteoarthritis status post right total knee arthroplasty History of prior CVA Monitor vital signs Monitor CBC Continue pain management per orthopedics Continue DVT prophylaxis per orthopedics Aggressive bowel regimen to prevent opioid-induced constipation Continue Norvasc, Lipitor PT and OT recommend rehab, being discharged to rehab today Labs and medication were reviewed.. Continue same treatment. Continue with symptomatic treatment. Resume home medication. Monitor labs and vitals. DVT and GI prophylaxis. Further recommendations as per clinical course of the patient Dictation was produced using [employer] dictation software. please excuse any grammatical, word or spelling errors. Objective - Vital Signs Vital signs: Vital Signs Temp 97.6 F 07/01/25 14:00 Pulse 107 H 07/01/25 14:00 Resp 16 07/01/25 14:00 BP 125/67 07/01/25 14:00 Pulse Ox 97 07/01/25 14:00 FiO2 Intake & Output 06/30/25 07/01/25 07/01/25 18:59 06:59 18:59 Other: Voiding Method Bedside Commode Bedside Commode Bedside Commode # Voids 3 4 - Labs CBC & Chem 7: 07/01/25 05:01 07/01/25 05:01 Labs: Abnormal Lab Results - Last 24 Hours (Table) 07/01/25 07/01/25 Range/Units 05:01 05:01 WBC 15.61 H (4.50-10.00) X 10*3/uL RBC 3.14 L (4.10-5.20) X 10*6/uL Hgb 9.6 L (12.0-15.0) g/dL Hct 28.3 L (37.2-46.3) % Immature Gran # 0.09 H (0.00-0.04) X 10*3/uL Neutrophils # 11.61 H (1.80-7.70) X 10*3/uL Monocytes # 2.04 H (0.20-1.00) X 10*3/uL Eosinophils # 0.01 L (0.04-0.35) X 10*3/uL Creatinine 0.5 L (0.6-1.5) mg/dL Glucose 142 H (70-110) mg/dL Albumin 3.7 L (3.8-4.9) g/dL Albumin/Globulin Ratio 1.42 L (1.60-3.17) Ratio
== END 2025-07-01 16:06 ==
LOC: OR 07:15 → 4SSUR 11:51 → OR 07-01 16:06
PROVIDERS: ATTEND Orthopaedic Surgery
DX: M17.11 Unilateral primary osteoarthritis, right knee (principal); M21.061 Valgus deformity, not elsewhere classified, right knee; I10 Essential (primary) hypertension; G89.18 Other acute postprocedural pain; E78.5 Hyperlipidemia, unspecified; Z79.82 Long term (current) use of aspirin; Z85.3 Personal history of malignant neoplasm of breast; Z86.16 Personal history of COVID-19; Z86.73 Personal history of transient ischemic attack (TIA), and cerebral infarction without residual deficits; Z79.899 Other long term (current) drug therapy
CPT/HCPCS: 97162; 97166; 64448; 64473; 85025; 73560; 27447; C1713; C1776; C1751; J2250; J1100; J0690 ×2; J2405; J2795; J1171; 80053